=== PATIENT | female | born 1950 | race Caucasian/White ===

== ENCOUNTER 2016-04-09 07:42 | Day surgery (SDC) | payer OTHER ==
[~2016-04-09] VITALS: Ht 170.2 cm; Wt 84.1 kg
[~2016-04-09 07:42] MED LIST: AMLO5 PO; ASPI81TA82 PO; ATOR40TA49 PO; CALC-137 PO; FURO20 PO; ISOS120T14 PO; LISI-587 PO; METO50TA PO; METO5TAB46 PO; NITR0.4S SL; POTA10SO12 PO; RANO500 PO; TAB-TAB PO; TIOT12.9 INH; VITATAB25 PO
[2016-04-09 08:09] VITALS: BP 103/57; PULSE 70; RESP 20; TEMP 98.1; O2SAT 91
[2016-04-09] MEDS ORDERED: SODIUM CHLORIDE 0.9% 1000 ML IV SCH (08:30)
[2016-04-09] MEDS ORDERED: ceFAZolin 2 GM PREMIX 50 ML - implanted port removal IV SCH (08:30)
[2016-04-09] MEDS ORDERED: AMLO5TAB2 PO (08:35)
[2016-04-09] MEDS ORDERED: ISOS120T PO (08:35)
[2016-04-09] MEDS ORDERED: ASPI81CH CHEW (08:35)
[2016-04-09] MEDS ORDERED: RANO500 PO (08:35)
[2016-04-09] MEDS ORDERED: POTA10PO PO (08:35)
[2016-04-09] MEDS ORDERED: VITATAB25 PO (08:35)
[2016-04-09] MEDS ORDERED: GABA400C5 PO (08:35)
[2016-04-09] MEDS ORDERED: ZOCO40TA PO (08:35)
[2016-04-09] MEDS ORDERED: LISI20TA3 PO (08:35)
[2016-04-09] MEDS ORDERED: METO5TAB3 PO (08:35)
[2016-04-09] MEDS ORDERED: CALCCHW9 CHEW (08:35)
[2016-04-09] MEDS ORDERED: RANI150T PO (08:35)
[2016-04-09] MEDS ORDERED: METO25TA6 PO (08:35)
[2016-04-09] MEDS ORDERED: FURO20TA PO (08:35)
[2016-04-09] MEDS ORDERED: VENL75TA PO (08:35)
[2016-04-09 08:46] LABS: APTT (PATIENT) 26.2 SEC (24.3-30.1); PROTHROMBIN TIME - PATIENT 10.7 SEC (9.8-11.6)
[2016-04-09] MEDS ORDERED: SODIUM BICARBONATE 8.4% INJ 50 ML ONE ×2 (09:04→09:30)
[2016-04-09] MEDS ORDERED: LIDOCAINE 1%/EPINEPHrine 1:100,000 SOLN 20 ML VIAL ONE (09:08)
--- NOTE | 2016-04-09 10:00 | PD.RAD ---
Post Procedure Progress Note Pre Procedure Diagnosis: (1) Breast CA Post Procedure Diagnosis: (1) Breast CA Procedure Date: Apr 09, 2016 Supervising Radiologist: Alejo Schroeder Estimated blood loss: 2CC Anesthesia: Local Plan of Activity Patient to Unit: ROPU Patient Condition: Good Additional Comments: Port removed from the right chest without difficulty. See PACS Report for procedural detail/treatment Alejo Schroeder MD Apr 09, 2016 10:00
[2016-04-09 10:10] VITALS: BP 115/65; PULSE 65; RESP 18; TEMP 98.4; O2SAT 93
[2016-04-09 10:25] VITALS: BP 116/62; PULSE 68; RESP 16; O2SAT 94
[2016-04-09 10:55] VITALS: BP 117/68; PULSE 78; RESP 16; O2SAT 94
--- NOTE | 2016-04-09 13:31 | RADRPT ---
EXAM DATE/TIME: 04/09/2016 08:23 [facility] COMPARISON: [id number] PLCMT, POWERPORT, W US, RIGHT, October 19, 2015, 9:01. INDICATIONS : Patient with history of left breast cancer in need of Qfayf-a-Bhya removal. MEDICAL HISTORY : HLD, Irregular heartbeat, HTN, CAD, GERD, Chemotherapy, Guilliane Marston, COPD, PVD, Ductal carcinoma of the left breast, Peripheral neuropathy, CKD SURGICAL HISTORY : Left lumpectomy, Lymph node biopsy, Colonoscopy, Partial hysterectomy, Breast biopsy, Coronary stent, Left femoral artery sent ENCOUNTER: Subsequent ACUITY: > 1 year PAIN SCORE: 0/10 Prophylactic antibiotics were administered with appropriate pre-procedure timing. Vancomycin within 2 hrs of procedure, Ancef (or alternative) within 1 hr of procedure. PROCEDURE : 1. Removal of Dgawnu-w-jdju. 2. Conscious sedation with continuous EKG and oximetry monitoring. The risk, benefits and potential complications of Xrbuhh-a-Hykx removal were discussed. Written conse nt was obtained. The patient was placed supine. The chest wall was prepped in sterile fashion. Full sterile techniqu e was used, including cap, mask, sterile gloves and gown, and a large sterile sheet. Hand hygiene an d 2% chlorhexidine and/or Betadine/alcohol prep was utilized per protocol for cutaneous antisepsis. The skin and subcutaneous tissues were infiltrated with local anesthetic solution. A small incision w as made, the subcutaneous pocket was opened. The port was dissected from the subcutaneous tissues and easily removed in one piece. The pocket incision was closed with subcuticular Vicryl suture. Steri -Strips were applied. Conscious sedation was performed with the prescribed dosages and duration as above. The patient tole rated the procedure well and there were no complications. EKG and oximetry remained stable throughou t the procedure. The patient was sent to post anesthesia recovery in stable condition. CONCLUSION: Uncomplicated port removal as above. Alejo Schroeder MD on April 09, 2016 at 13:30 Board Certified Radiologist. This report was verified electronically.
== END 2016-04-09 11:10 | disposition home or self-care (01) ==
LOC: HROP 07:42 → HRIP 07:47 → HROP 11:10
PROVIDERS: ATTEND Internal Medicine
DX: Z45.2 Encounter for adjustment and management of vascular access device (principal); C50.912 Malignant neoplasm of unspecified site of left female breast; F32.9 Major depressive disorder, single episode, unspecified; E78.5 Hyperlipidemia, unspecified; I12.9 Hypertensive chronic kidney disease with stage 1 through stage 4 chronic kidney disease, or unspecified chronic kidney disease; N18.9 Chronic kidney disease, unspecified; I25.10 Atherosclerotic heart disease of native coronary artery without angina pectoris; I73.9 Peripheral vascular disease, unspecified; G62.9 Polyneuropathy, unspecified; J44.9 Chronic obstructive pulmonary disease, unspecified; K21.9 Gastro-esophageal reflux disease without esophagitis
CPT/HCPCS: 36590; 77387; 77412; 85610; 85730; J0690; J7030